=== PATIENT | male | born 1980 | race African-American/Black ===

== ENCOUNTER 2017-05-12 12:43 | Emergency (ER) | payer MEDICAID ==
[~2017-05-12] VITALS: Ht 190.5 cm; Wt 108.9 kg
[2017-05-12 13:32] LABS: BASOPHILS % (AUTO) 0.8 % (0.0-2.0); EOSINOPHILS % (AUTO) 0.8 % (0.0-3.0); MEAN CORPUSCULAR HEMOGLOBIN 27.2 PG (27.0-31.0); MEAN CORPUSCULAR HGB CONC 32.1 G/DL (32.0-36.0); MEAN CORPUSCULAR VOLUME 85 FL (80-99); MEAN PLATELET VOLUME 6.9 FL (6.5-10.1); MONOCYTES % (AUTO) 12.2 % (1.0-10.0); NEUTROPHILS % (AUTO) 49.2 % (45.0-75.0); PLATELET COUNT 245 K/UL (150-450); RED BLOOD COUNT 5.39 M/UL (4.70-6.10); RED CELL DISTRIBUTION WIDTH 13.5 % (11.6-14.8); WHITE BLOOD COUNT 6.5 K/UL (4.8-10.8)
[2017-05-12 13:37] VITALS: BP 132/89
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
[2017-05-12 13:44] LABS: ALANINE AMINOTRANSFERASE 18 U/L (12-78); ALBUMIN/GLOBULIN RATIO 0.7 (1.0-2.7); ANION GAP 7 mmol/L (5-15); ASPARTATE AMINO TRANSFERASE 20 U/L (15-37); CALCIUM 9.9 MG/DL (8.5-10.1); CARBON DIOXIDE 26 MMOL/L (21-32); CHLORIDE 106 MMOL/L (98-107); CREATININE 1.2 MG/DL (0.55-1.30); GLOMERULAR FILTRATION RATE > 60 mL/min (>60); POTASSIUM 3.8 MMOL/L (3.5-5.1); SODIUM 139 MMOL/L (136-145); TOTAL PROTEIN 8.8 G/DL (6.4-8.2)
[2017-05-12] MEDS ORDERED: LORazepam Inj 2mg/ml 1ml IV ONE (13:45)
[2017-05-12 13:48] LABS: ACETAMINOPHEN 0 MCG/ML (10-30); ALCOHOL < 3 mg/dL
[2017-05-12 15:08] VITALS: BP 118/76
[2017-05-12 20:35] VITALS: BP 112/68
[2017-05-13 00:23] VITALS: BP 123/72
[2017-05-13 06:39] VITALS: BP 136/93
--- NOTE | 2017-05-13 10:40 | Consultation ---
History of Present Illness General Chief Complaint: Behavioral Complaint Present Illness HPI 36-year-old male history of hiv, crystal meth abuse, and depression brought by EMS and police for being found naked sitting on a bench, naked holding a sward. the pt currently not endorsing psychotic or depressive sxs. He believes that in passed he was possessed with "spiritual energy" the pt has been rejected by family and moved to [place] about a month ago. the pt not endorsing any anxiety and currently taking Seroquel and Klonopin. the pt is not endorsing si/hi and is with [facility].. He had an appointment with psychiatrist but did not show up to his apoointment. He stated that he would make another appointment He was educated in regards to meth use, he has poor insight regarding meth use. He thinks it helps his depression. the pt didn't report si to any er docs during his stay. he needs cloths. spoke with his current nurse and he didn't express SI to her. Allergies: Coded Allergies: No Known Allergies (Unverified , 05/12/17) Patient History History Provided By: Patient, Medical Record, PMD Healthcare decision maker Resuscitation status Advanced Directive on File Past Medical/Surgical History Past Medical/Surgical History: (1) Behavioral disorder Review of Systems Psychiatric: Reports: prior hx Physical Exam General Appearance: no apparent distress, alert, thin Neurologic: alert, oriented x 3, responsive, depressed affect Last 24 Hour Vital Signs Date Time Temp Pulse Resp B/P (MAP) Pulse Ox O2 Delivery O2 Flow Rate FiO2 05/13/17 06:39 97.2 90 14 136/93 96 Room Air 05/13/17 00:23 98.2 73 18 123/72 98 Room Air 05/12/17 20:35 73 16 112/68 100 Room Air 05/12/17 15:08 97.1 93 18 118/76 100 Room Air 05/12/17 13:45 97.1 05/12/17 13:37 20 132/89 100 Room Air 05/12/17 12:40 88 16 113/57 99 Room Air Laboratory Tests Test 05/12/17 12:52 05/12/17 13:18 05/12/17 14:52 Carboxyhemoglobin Pending White Blood Count 6.5 K/UL (4.8-10.8) Red Blood Count 5.39 M/UL (4.70-6.10) Hemoglobin 14.7 G/DL (14.2-18.0) Hematocrit 45.8 % (42.0-52.0) Mean Corpuscular Volume 85 FL (80-99) Mean Corpuscular Hemoglobin 27.2 PG (27.0-31.0) Mean Corpuscular Hemoglobin Concent 32.1 G/DL (32.0-36.0) Red Cell Distribution Width 13.5 % (11.6-14.8) Platelet Count 245 K/UL (150-450) Mean Platelet Volume 6.9 FL (6.5-10.1) Neutrophils (%) (Auto) 49.2 % (45.0-75.0) Lymphocytes (%) (Auto) 37.0 % (20.0-45.0) Monocytes (%) (Auto) 12.2 % (1.0-10.0) H Eosinophils (%) (Auto) 0.8 % (0.0-3.0) Basophils (%) (Auto) 0.8 % (0.0-2.0) Sodium Level 139 MMOL/L (136-145) Potassium Level 3.8 MMOL/L (3.5-5.1) Chloride Level 106 MMOL/L (98-107) Carbon Dioxide Level 26 MMOL/L (21-32) Anion Gap 7 mmol/L (5-15) Blood Urea Nitrogen 16 mg/dL (7-18) Creatinine 1.2 MG/DL (0.55-1.30) Estimat Glomerular Filtration Rate > 60 mL/min (>60) Glucose Level 92 MG/DL (74-106) Calcium Level 9.9 MG/DL (8.5-10.1) Total Bilirubin 0.4 MG/DL (0.2-1.0) Aspartate Amino Transf (AST/SGOT) 20 U/L (15-37) Alanine Aminotransferase (ALT/SGPT) 18 U/L (12-78) Alkaline Phosphatase 62 U/L (46-116) Total Protein 8.8 G/DL (6.4-8.2) H Albumin 3.7 G/DL (3.4-5.0) Globulin 5.1 g/dL Albumin/Globulin Ratio 0.7 (1.0-2.7) L Salicylates Level < 1 mg/dL (10-30) L Acetaminophen Level 0 MCG/ML (10-30) L Serum Alcohol < 3 mg/dL Urine Opiates Screen Negative (NEGATIVE) Urine Barbiturates Screen Negative (NEGATIVE) Phencyclidine (PCP) Screen Negative (NEGATIVE) Urine Amphetamines Screen Positive (NEGATIVE) H Urine Benzodiazepines Screen Negative (NEGATIVE) Urine Cocaine Screen Negative (NEGATIVE) Urine Marijuana (THC) Screen Negative (NEGATIVE) Height (Feet): 6 Height (Inches): 3.00 Weight (Pounds): 240 Assessment/Plan Status: doing well, stable, progressing Assessment/Plan MDD, crystal meth use. -he was given risperdal 2mg last night. -not meeting the criteria for 5150 -not meeting the criteria for iploc. -pt to f/o with Chloe Nick M.D. May 13, 2017 10:40
[2017-05-13 11:19] VITALS: BP 128/89
[2017-05-13 11:23] VITALS: BP 128/89
--- NOTE | 2017-05-13 14:31 | Emergency Room Report ---
Physical Exam Vital Signs Date Time Temp Pulse Resp B/P (MAP) Pulse Ox O2 Delivery O2 Flow Rate FiO2 05/12/17 12:40 88 16 113/57 99 Room Air 05/12/17 13:45 97.1 Medical Decision Making Diagnostic Impression: Primary Impression: Behavioral disorder Additional Impression: Substance abuse ER Course patient brought in for evaluation. History of depression Patient initially seen and evaluated by Dr Brito; please see her note for full history and physical Labs unremarkable, U. tox positive for amphetamines Patient evaluated by Dr. Powers; agrees the patient is not a danger to himself or others. Patient does have followup with his doctor for his medications. Agreed with assessment and that patient can be safely discharged home diagnosis - behavioral disorder, substance abuse Stable and discharged to home. Followup with PMD/psychiatry. Return to ED if symptoms recur or worsen Labs Test 05/12/17 12:52 05/12/17 13:18 05/12/17 14:52 White Blood Count 6.5 K/UL (4.8-10.8) Red Blood Count 5.39 M/UL (4.70-6.10) Hemoglobin 14.7 G/DL (14.2-18.0) Hematocrit 45.8 % (42.0-52.0) Mean Corpuscular Volume 85 FL (80-99) Mean Corpuscular Hemoglobin 27.2 PG (27.0-31.0) Mean Corpuscular Hemoglobin Concent 32.1 G/DL (32.0-36.0) Red Cell Distribution Width 13.5 % (11.6-14.8) Platelet Count 245 K/UL (150-450) Mean Platelet Volume 6.9 FL (6.5-10.1) Neutrophils (%) (Auto) 49.2 % (45.0-75.0) Lymphocytes (%) (Auto) 37.0 % (20.0-45.0) Monocytes (%) (Auto) 12.2 % (1.0-10.0) Eosinophils (%) (Auto) 0.8 % (0.0-3.0) Basophils (%) (Auto) 0.8 % (0.0-2.0) Sodium Level 139 MMOL/L (136-145) Potassium Level 3.8 MMOL/L (3.5-5.1) Chloride Level 106 MMOL/L (98-107) Carbon Dioxide Level 26 MMOL/L (21-32) Anion Gap 7 mmol/L (5-15) Blood Urea Nitrogen 16 mg/dL (7-18) Creatinine 1.2 MG/DL (0.55-1.30) Estimat Glomerular Filtration Rate > 60 mL/min (>60) Glucose Level 92 MG/DL (74-106) Calcium Level 9.9 MG/DL (8.5-10.1) Total Bilirubin 0.4 MG/DL (0.2-1.0) Aspartate Amino Transf (AST/SGOT) 20 U/L (15-37) Alanine Aminotransferase (ALT/SGPT) 18 U/L (12-78) Alkaline Phosphatase 62 U/L (46-116) Total Protein 8.8 G/DL (6.4-8.2) Albumin 3.7 G/DL (3.4-5.0) Globulin 5.1 g/dL Albumin/Globulin Ratio 0.7 (1.0-2.7) Salicylates Level < 1 mg/dL (10-30) Acetaminophen Level 0 MCG/ML (10-30) Serum Alcohol < 3 mg/dL Urine Opiates Screen Negative (NEGATIVE) Urine Barbiturates Screen Negative (NEGATIVE) Phencyclidine (PCP) Screen Negative (NEGATIVE) Urine Amphetamines Screen Positive (NEGATIVE) Urine Benzodiazepines Screen Negative (NEGATIVE) Urine Cocaine Screen Negative (NEGATIVE) Urine Marijuana (THC) Screen Negative (NEGATIVE) Last Vital Signs Date Time Temp Pulse Resp B/P (MAP) Pulse Ox O2 Delivery O2 Flow Rate FiO2 05/13/17 11:23 97.2 73 17 128/89 97 Room Air 85 Status: improved Disposition: HOME, SELF-CARE Condition: Stable Referrals: NOT CHOSEN SANTOS/,REFERRING (PCP) Patient Instructions: Schizophrenia VERONICA VELÁSQUEZ M.D. May 13, 2017 14:31
== END 2017-05-13 11:25 | disposition home or self-care (01) ==
LOC: EDBD 12:43 → EMR 13:20
DX: F91.9 Conduct disorder, unspecified (principal); F32.9 Major depressive disorder, single episode, unspecified; F15.10 Other stimulant abuse, uncomplicated
CPT/HCPCS: 36415; 80053; 80307; 80329; 85025; 96374; 99285